=== PATIENT | female | born 1975 | race Caucasian/White ===

== ENCOUNTER → 2023-01-23 14:26 | Outpatient (BNVA) | payer BC, SELFPAY | PROVIDERS: PCP Physician Assistant Medical; Visit Provider Physician Assistant | DX: Z13.89 Encounter for screening for other disorder (principal) ==

== ENCOUNTER → 2023-01-29 14:53 | Outpatient (BNVA) | payer BC, SELFPAY | PROVIDERS: PCP Physician Assistant Medical; Visit Provider Physician Assistant Surgical | DX: Z13.89 Encounter for screening for other disorder (principal) ==

== ENCOUNTER → 2023-02-28 09:14 | Outpatient (BNVA) | payer BC, SELFPAY | PROVIDERS: PCP Physician Assistant Medical; Visit Provider Dietitian, Registered | DX: Z71.3 Dietary counseling and surveillance (principal) | CPT/HCPCS: 97802 ==

== ENCOUNTER → 2023-03-28 09:02 | Outpatient (BNVA) | payer BC, SELFPAY | PROVIDERS: PCP Physician Assistant Medical; Visit Provider Physician Assistant Surgical ==

== ENCOUNTER 2023-06-06 10:25 | Outpatient (AMB) | payer BC, SELFPAY ==
--- NOTE | 2023-06-06 10:31 | MHC.OFFVISWM ---
Intake VS Expanded 06/06/23 10:37 Height 5 ft 7 in Weight 171 lb 12.8 oz BMI 26.9 BP 156/93 H Blood Pressure Location Rt brachial Blood Pressure Position Sitting Pulse 77 Pulse Source Pulse Oximeter Temp 98.0 F Temperature Source Temporal Artery Scan Pulse Oximetry 99 Oxygen Delivery Method Room Air Body Fat 57.4 Body Fat Percentage 33.4 Free Fat Mass 114.4 Muscle Mass 108.6 Visceral Mass 7.0 Water Mass 81.4 BMR 1,546 Intake Visit Reasons: (OV) F/U [facility] [employer] Operator Required: No Allergies Penicillins Allergy (Mild, Verified 06/06/23 10:35) Nausea Medication List - Last Reconciled 06/06/23 by ALEC Schaeffer norgest/e.estradiol-e.estrad 0.15 mg-30 mcg (84)/10 mcg (7) (Ashlyna) 1 tab PO DAILY naproxen 500 mg PO BID HPI HPI Comments History of Present Illness Details The patient is a pleasant 48 year old female who returns to the clinic for follow up in the medical weight loss management.? Initial weight in the office on 02/07/23, was 197.4 pounds, with a BMI of 30.9.? Today's weight is 171.8 with a BMI of 26.9.? There has been a weight loss of 25.6 pounds with a total body weight loss of 12.9 %. The patient reports she is doing well but stiil is having trouble believing that she has lost weight. She states her goal is to reach 165 pounds.? Current meal plan includes: 2 Isopure shakes, (1/2 scoop in 8-10 oz low fat unsweetened almond milk each) First shake at 7am-9am 1 protein bar ([employer] bar) but this would be at 11am-1 pm Dinner at 5pm (8 forks of protein and 8 forks of salad/vegetables). Second shake at 6pm-8pm. Drinking 64 oz of water Current exercise plan includes: weights and treadmill,3 x per week PFSH Surgical History Hx of cholecystectomy Family History Mother Hypertension Diabetes Father No problems noted. Brother No problems noted. Son No problems noted. Son No problems noted. Social History Alcohol intake: never Patient Tobacco Use Status: Never used Tobacco Physical Exam Vital Signs: Last Vital Signs Temp 98.0 F 06/06/23 10:37 Pulse 77 06/06/23 10:37 BP 156/93 H 06/06/23 10:37 Pulse Ox 99 06/06/23 10:37 Oxygen Delivery Method Room Air 06/06/23 10:37 BMI result Body Mass Index 26.9 Const General: healthy appearing and no acute distress Resp Effort & Inspection: normal respiratory effort Auscultation: clear to auscultation bilaterally Cardio Rate: regular rate Rhythm: regular rhythm GI Auscultation: normal bowel sounds Extrem General: Yes normal to inspection Assessment & Plan Assessment & Plan (1) Overweight (BMI 25.0-29.9): Code(s): E66.3 - Overweight Plan: Satisfied with her weight loss Given strategy to continue to maintain and improve rtc as needed Coding Level of Care Code Est Pt Level 3 (49508) Diagnoses Overweight (BMI 25.0-29.9) E66.3
[2023-06-06 10:37] VITALS: BP 156/93; PULSE 77; TEMP 36.7; O2SAT 99; BMI 26.9
== END 2023-06-06 11:08 | disposition home or self-care (01) ==
PROVIDERS: PCP Physician Assistant Medical; Visit Provider Physician Assistant Surgical
DX: E66.3 Overweight (principal); Z68.26 Body mass index [BMI] 26.0-26.9, adult
CPT/HCPCS: 99213

== ENCOUNTER → 2023-06-06 10:25 | Outpatient (BNVA) | payer BC, SELFPAY | PROVIDERS: PCP Physician Assistant Medical; Visit Provider Physician Assistant Surgical ==